=== PATIENT | male | born 1960 | race Caucasian/White ===

== ENCOUNTER 2017-11-02 06:52 | Emergency (ER) | payer BC ==
[~2017-11-02] VITALS: Ht 172.7 cm; Wt 111.0 kg
[2017-11-02 07:12] VITALS: BP 157/90; PULSE 88; RESP 20; TEMP 98.7; O2SAT 98
[2017-11-02 07:15] VITALS: BP 157/90; PULSE 85; RESP 20; O2SAT 98
[2017-11-02 07:29] LABS: AUTOMATED NEUTROPHIL # 4.9 TH/MM3 (1.8-7.7); BASOPHIL % 0.4 % (0.0-2.0); EOSINOPHIL # 0.2 TH/MM3 (0-0.4); EOSINOPHIL % 2.7 % (0.0-4.0); HEMOGLOBIN 12.8 GM/DL (13.0-17.0); LYMPH % 26.8 % (9.0-44.0); LYMPHOCYTE # 2.1 TH/MM3 (1.0-4.8); MEAN CELL VOLUME 86.5 FL (80.0-100.0); MEAN CORPUSCULAR HEMOGLOBIN 28.4 PG (27.0-34.0); MEAN CORPUSCULAR HGB CONC 32.8 % (32.0-36.0); MEAN PLATELET VOLUME 7.6 FL (7.0-11.0); MONO % 7.7 % (0.0-8.0); MONOCYTE # 0.6 TH/MM3 (0-0.9); NEUT % 62.4 % (16.0-70.0); PLATELET COUNT 228 TH/MM3 (150-450); RED BLOOD COUNT 4.51 MIL/MM3 (4.50-5.90); RED CELL DISTRIBUTION WIDTH 14.9 % (11.6-17.2); WHITE BLOOD COUNT 7.8 TH/MM3 (4.0-11.0)
[2017-11-02] MEDS ORDERED: NITROGLYCERIN 0.4 MG SL 25 TABS/BTL SL ONE (07:30)
[2017-11-02] MEDS ORDERED: ASPIRIN 81 MG CHEW TAB PO ONE (07:30)
--- NOTE | 2017-11-02 07:34 | PD ---
HPI Chief Complaint: Chest Pain Time Seen by Provider: 07:09 Travel History International Travel<30 days: No Contact w/Intl Traveler<30days: No Traveled to known affect area: No History of Present Illness HPI This 56-year-old man who presents to the emergency department complaining of chest pain. He is a history of CAD. He had one stent placed about 2 years ago. He also has diabetes and hypertension. He states that he started to get and dull constant chest pain during the middle the night. It one episode of nausea and vomiting with this. He does state he has had some shortness of breath and dyspnea on exertion as been ongoing for the past couple days which is new for him. He otherwise had been feeling generally well. Review of systems positive for some URI symptoms. He also states he gets some intermittent leg cramping as been going on for some time. No swelling. No trauma or recent increased activity or heavy lifting. He states it feels like the last time he had heart problems that led to his stent. He has not had any previous workup since his stent 2 years ago. He is visiting from out of town. History Past Medical History Narrative Medical CAD, history of stent Diabetes Hypertension Tetanus Vaccination: Unknown Influenza Vaccination: Yes Social History Alcohol Use: No Tobacco Use: Yes (1 PPD) Allergies-Medications (Allergen,Severity, Reaction): Coded Allergies: No Known Allergies (Unverified , 11/02/17) Review of Systems Except as stated in HPI: all other systems reviewed are Neg Physical Exam Narrative GENERAL: Well-appearing 56-year-old man, no acute distress. SKIN: Focused skin assessment warm/dry. HEAD: Atraumatic. Normocephalic. EYES: Pupils equal and round. No scleral icterus. No injection or drainage. ENT: No nasal bleeding or discharge. Mucous membranes pink and moist. NECK: Trachea midline. No JVD. CARDIOVASCULAR: Regular rate and rhythm. No murmur appreciated. RESPIRATORY: No accessory muscle use. Clear to auscultation. Breath sounds equal bilaterally. GASTROINTESTINAL: Abdomen soft, non-tender, nondistended. Hepatic and splenic margins not palpable. MUSCULOSKELETAL: No obvious deformities. No clubbing. No cyanosis. No edema. NEUROLOGICAL: Awake and alert. No obvious cranial nerve deficits. Motor grossly within normal limits. Normal speech. PSYCHIATRIC: Appropriate mood and affect; insight and judgment normal. Data Data Last Documented VS Vital Signs Date Time Temp Pulse Resp B/P (MAP) Pulse Ox O2 Delivery O2 Flow Rate FiO2 11/02/17 07:41 18 11/02/17 07:15 85 157/90 (112) 98 Room Air 11/02/17 07:12 98.7 Orders Orders Electrocardiogram (11/02/17 07:09) Ckmb (Isoenzyme) Profile (11/02/17 07:09) Complete Blood Count With Diff (11/02/17 07:09) Comprehensive Metabolic Panel (11/02/17 07:09) Magnesium (Mg) (11/02/17 07:09) Prothrombin Time / Inr (Pt) (11/02/17 07:09) Act Partial Throm Time (Ptt) (11/02/17 07:09) Troponin I (11/02/17 07:09) Lipase (11/02/17 07:09) Chest, Single Ap (11/02/17 07:09) Ecg Monitoring (11/02/17 07:09) Bilateral Bp Monitoring (11/02/17 07:09) Iv Access Insert/Monitor (11/02/17 07:09) Oximetry (11/02/17 07:09) Oxygen Administration (11/02/17 07:09) Aspirin Chew (Aspirin Chew) (11/02/17 07:30) Nitroglycerin Sl (Nitrostat Sl) (11/02/17 07:30) CKMB (11/02/17 07:20) CKMB% (11/02/17 07:20) Labs Laboratory Tests Test 11/02/17 07:20 White Blood Count 7.8 TH/MM3 Red Blood Count 4.51 MIL/MM3 Hemoglobin 12.8 GM/DL Hematocrit 39.0 % Mean Corpuscular Volume 86.5 FL Mean Corpuscular Hemoglobin 28.4 PG Mean Corpuscular Hemoglobin Concent 32.8 % Red Cell Distribution Width 14.9 % Platelet Count 228 TH/MM3 Mean Platelet Volume 7.6 FL Neutrophils (%) (Auto) 62.4 % Lymphocytes (%) (Auto) 26.8 % Monocytes (%) (Auto) 7.7 % Eosinophils (%) (Auto) 2.7 % Basophils (%) (Auto) 0.4 % Neutrophils # (Auto) 4.9 TH/MM3 Lymphocytes # (Auto) 2.1 TH/MM3 Monocytes # (Auto) 0.6 TH/MM3 Eosinophils # (Auto) 0.2 TH/MM3 Basophils # (Auto) 0.0 TH/MM3 CBC Comment DIFF FINAL Differential Comment Prothrombin Time 10.4 SEC Prothromb Time International Ratio 1.0 RATIO Activated Partial Thromboplast Time 28.7 SEC Blood Urea Nitrogen 41 MG/DL Creatinine 2.64 MG/DL Random Glucose 135 MG/DL Total Protein 8.2 GM/DL Albumin 3.3 GM/DL Calcium Level 8.6 MG/DL Magnesium Level 2.1 MG/DL Alkaline Phosphatase 147 U/L Aspartate Amino Transf (AST/SGOT) 25 U/L Alanine Aminotransferase (ALT/SGPT) 36 U/L Total Bilirubin 0.2 MG/DL Sodium Level 140 MEQ/L Potassium Level 5.0 MEQ/L Chloride Level 110 MEQ/L Carbon Dioxide Level 21.4 MEQ/L Anion Gap 9 MEQ/L Estimat Glomerular Filtration Rate 25 ML/MIN Total Creatine Kinase 246 U/L Creatine Kinase MB 3.9 NG/ML Troponin I LESS THAN 0.02 NG/ML Lipase 235 U/L MDM Medical Decision Making Medical Screen Exam Complete: Yes Emergency Medical Condition: Yes Interpretation(s) My review of EKG: Normal sinus rhythm at a rate of 87, normal axis, normal intervals, no acute ischemia. LABS: CBC unremarkable. CMP remarkable for mildly elevated BUN and creatinine Lipase normal Troponin negative Coags unremarkable Chest x-ray: Negative Differential Diagnosis ACS, anxiety, GERD and reflux, pancreatitis, other Narrative Course Medical decision making 56-year-old man, presents to the emergency department complaining of chest pain. Looks well. He has a history of CAD in multiple risk factors. History is mildly suggestive of heart problems. EKG is without any evidence of ischemia. No evidence of PE. History is not suggestive of dissection or other. We'll check labs, EKG, chest x-ray, recommend chest pain Center for further evaluation. Patient has a heart score 4, placing him at moderate risk for major adverse cardiac event in the next 6 weeks. I did explicitly discussion with the patient including a 15-20% risk of major adverse cardiac events in the next 6 weeks. Patient states he feels much better and really does not want to stay for further evaluation. I recommended that we keep the patient for chest pain Center, provocative testing. After discussion of risks and benefits, patient has decided to pursue outpatient follow-up. I did investment counselor patient especially that if he has any return of the symptoms, or if he notices that he has exertional symptoms, they would be additional indicators that this is likely cardiac in nature and would recommend immediate return to the emergency department. Diagnosis Primary Impression: Chest pain Patient Instructions: General Instructions Additional Instructions: Follow-up with her primary physician and return home. He can follow-up with a central office inspector here as well. Return to the emergency department immediately for any recurrent chest pain, worsening chest pain, exertional symptoms, or any other new or worsening symptoms. Take one full dose aspirin daily. Med/Other Pt SpecificInfo: No Change to Meds Disposition: 01 DISCHARGE HOME Condition: Stable Rigoberto Lea MD Nov 02, 2017 07:34
--- NOTE | 2017-11-02 07:40 | RADRPT ---
EXAM DATE/TIME: 11/02/2017 07:27 [facility] COMPARISON: No previous studies available for comparison. INDICATIONS : Mid sternal chest pains, prior stent 2016. MEDICAL HISTORY : Myocardial infarction. SURGICAL HISTORY : Coronary artery stent. ENCOUNTER: Initial ACUITY: 1 day PAIN SCORE: 8/10 LOCATION: Left chest FINDINGS: A single view of the chest demonstrates the lungs to be symmetrically aerated without evidence of mas s, infiltrate or effusion. The cardiomediastinal contours are unremarkable. Osseous structures are intact. CONCLUSION: No acute disease. Jackson Latham MD on November 02, 2017 at 7:37 Board Certified Radiologist. This report was verified electronically.
[2017-11-02 07:41] VITALS: RESP 18
[2017-11-02 07:41] LABS: PROTHROMBIN TIME - PATIENT 10.4 SEC (9.8-11.6)
[2017-11-02 07:45] LABS: ALBUMIN 3.3 GM/DL (3.4-5.0); ALT (GPT) 36 U/L (12-78); AST (GOT) 25 U/L (15-37); BICARBONATE 21.4 MEQ/L (21.0-32.0); BLOOD UREA NITROGEN 41 MG/DL (7-18); CALCIUM 8.6 MG/DL (8.5-10.1); CHLORIDE 110 MEQ/L (98-107); CREATININE 2.64 MG/DL (0.60-1.30); GLOMERULAR FILTRATION RATE 25 ML/MIN (>89); GLUCOSE,RANDOM 135 MG/DL (74-106); LIPASE 235 U/L (73-393); MAGNESIUM 2.1 MG/DL (1.5-2.5); SODIUM (NA) 140 MEQ/L (136-145)
[2017-11-02 07:49] LABS: ALKALINE PHOSPHATASE 147 U/L (45-117); TOTAL BILIRUBIN ADULT 0.2 MG/DL (0.2-1.0); TOTAL PROTEIN 8.2 GM/DL (6.4-8.2); TROPONIN I LESS THAN 0.02 NG/ML (0.02-0.05)
--- NOTE | 2017-11-02 11:57 | EKG ---
Date Performed: 11/02/2017 Time Performed: 07:07:45 PTAGE: 56 years EKG: Sinus rhythm NORMAL ECG NO PREVIOUS TRACING DOCTOR: Brandi Luu Interpretating Date/Time 11/02/2017 11:56:01
== END 2017-11-02 09:43 | disposition home or self-care (01) ==
LOC: NEPE 06:52
DX: R07.9 Chest pain, unspecified (principal); I25.10 Atherosclerotic heart disease of native coronary artery without angina pectoris; E11.9 Type 2 diabetes mellitus without complications; I10 Essential (primary) hypertension; F17.200 Nicotine dependence, unspecified, uncomplicated
CPT/HCPCS: 71045; 80053; 82550; 82552; 83690; 83735; 84484; 85025; 85610; 85730; 93005